=== PATIENT | male | born 1985 | race Caucasian/White ===

== ENCOUNTER 2021-12-28 06:40 | Emergency (ER) | payer OTHER ==
[~2021-12-28] VITALS: Ht 177.8 cm; Wt 136.1 kg
--- NOTE | 2021-12-28 06:45 | NUR ---
[facility]KKIE RICARDO [facility] BED 6 VIA [facility] [id number]
--- NOTE | 2021-12-28 07:08 | NUR ---
PT TO ROOM 6
--- NOTE | 2021-12-28 07:15 | NUR ---
36YR OLD MALE BIB EMS C/O DIZZINESS /NAUSEA XTODAY. PT HAS HX OF VERTIGO. ONSET OF DIZZINESS SINCE 5AM TODAY. PT STATES HAVING NAUSEA . PT IS PAIN FREE. DENIES CP OR SOB. PT IS A&OX4 SKIN WARM DRY AND INTACT. 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 HOB ELEVATED. SIDE RAILS UP X2. NKDA VERTIGO HTN
[2021-12-28 07:24] VITALS: BP 103/60
[2021-12-28] MEDS ORDERED: ONDANSETRON 4 MG/2 ML VIAL IVP ONE (07:30)
[2021-12-28] MEDS ORDERED: NACL 0.9% 1,000 ML IV ONE (07:30)
--- NOTE | 2021-12-28 07:35 | NUR ---
REPORT RECEIVED FROM SARA MCKEON. ASSUMED CARE AT THIS TIME
--- NOTE | 2021-12-28 07:40 | NUR ---
36YO MALE PT BIBA FROM HOME C/O VERTIGO, WEAKNESS AND NAUSEA XTHISMORNING. STATES DIZZINESS AT MOST ON HEAD MOVEMENT. DENIES RELIEF AFTER TAKING ANTIVERT. NOTES PREVIOUS S/S A FEW YEARS AGO AND WAS D/C WITH RX ANTIVERT. DENIES V/D, PAIN, SOB ,FEVER OR CHILLS. PT AAOX4. RESTING W/ EYES CLOSED. RSPIRATIONS EVEN AND UNLABORED. HOB POSITIONED PER COMFORT, BED AT LOWEST POSITION, BED RAILS UP X2. HX:DENIES NKA
[2021-12-28 08:15] LABS: BASOPHILS % (AUTO) 0.3 % (0.0-2.0); EOSINOPHILS # (AUTO) 0.2 K/uL (0-0.4); EOSINOPHILS % (AUTO) 1.9 % (0.0-4.0); HEMATOCRIT 40.5 % (36-52); LYMPHOCYTES # (AUTO) 1.5 K/uL (2.0-11.5); LYMPHOCYTES % (AUTO) 16.7 % (20.5-51.1); MEAN CORPUSCULAR HEMOGLOBIN 26 pg (27-31); MEAN CORPUSCULAR HGB CONC 32 g/dL (33-37); MEAN CORPUSCULAR VOLUME 80.7 fL (80-94); MONOCYTES # (AUTO) 0.7 K/uL (0.8-1.0); MONOCYTES % (AUTO) 7.9 % (1.7-9.3); NEUTROPHILS # (AUTO) 6.6 K/uL (1.8-7.7); NEUTROPHILS % (AUTO) 73.2 % (42.2-75.2); PLATELET COUNT (AUTO) 282 K/uL (140-450); RED BLOOD CELL COUNT(AUTO) 5.02 MIL/uL (4.20-6.10); RED CELL DISTRIBUTION WIDTH 15.3 % (11.6-13.7)
[2021-12-28 08:31] LABS: ALBUMIN 3.6 g/dL (3.4-5.0); ANION GAP 15.1 (8-16); ASPARTATE AMINOTRANSFERASE 25 U/L (15-37); CARBON DIOXIDE 26.6 mmol/L (21-32); CHLORIDE 105 mmol/L (98-107); CREATININE 1.1 mg/dL (0.6-1.3); GFR ARICAN-AMERICAN 98 mL/min (>90); GLUCOSE 123 mg/dL (74-106); POTASSIUM 3.7 mmol/L (3.5-5.1); SODIUM SERUM 143 mmol/L (136-145); TOTAL BILIRUBIN 0.4 mg/dL (0.0-1.0); UREA NITROGEN, BLOOD 18 mg/dL (7-18)
--- NOTE | 2021-12-28 08:46 | NUR ---
pt MICHAEL updated on pt status
[2021-12-28] MEDS ORDERED: MECL-303 PO (08:47)
[2021-12-28] MEDS ORDERED: ONDA-188 PO (08:47)
[2021-12-28] MEDS ORDERED: MECLIZINE 25 MG TAB PO ONE (09:40)
[2021-12-28] MEDS ORDERED: diphenhydrAMINE 50 MG/ML VIAL IVP ONE (09:45)
[2021-12-28] MEDS ORDERED: METOCLOPRAMIDE 10 MG/2 ML INJ VIAL IVP ONE (09:45)
[2021-12-28 12:04] VITALS: BP 167/99
--- NOTE | 2021-12-28 12:06 | NUR ---
Patient discharged with v/s stable. Written and verbal after care instructions given and explained. Patient alert, oriented and verbalized understanding of instructions. Ambulatory with steady gait. All questions addressed prior to discharge. ID band removed. Patient advised to follow up with PMD. Rx of ANTIVERT,ZOFRAN given. Patient educated on indication of medication including possible reaction and side effects. Opportunity to ask questions provided and answered.
== END 2021-12-28 12:06 | disposition home or self-care (01) ==
LOC: MED 06:40
DX: R42 Dizziness and giddiness (principal); Z79.899 Other long term (current) drug therapy
CPT/HCPCS: 36415; 80053; 84484; 85025; 93005; 96361; 96374; 96375; 99285; J1200; J2405; J2765; J7030; J8597